=== PATIENT | female | born 1980 | race Caucasian/White ===

== ENCOUNTER → 2022-01-22 | Day surgery (SDC) | payer OTHER ==
[~2022-01-22] VITALS: Ht 167.6 cm; Wt 93.0 kg
[~2022-01-22] MED LIST: NORCO 5-325 TA1 EACH PO
[2022-01-22 10:27] LABS: HCG (URINE) SCREEN NEGATIVE (NEGATIVE)
== END | disposition home or self-care (01) ==
LOC: FAS 11-06 11:45
PROVIDERS: Surgery
DX: K62.5 Hemorrhage of anus and rectum (principal); K64.9 Unspecified hemorrhoids; K57.30 Diverticulosis of large intestine without perforation or abscess without bleeding; E66.9 Obesity, unspecified; Z68.33 Body mass index [BMI] 33.0-33.9, adult
CPT/HCPCS: 84703; J2250; J2704; J7120